=== PATIENT | male | born 1940 | race Caucasian/White ===

== ENCOUNTER → 2017-06-17 | Outpatient (CLI) | payer MEDICARE | END | disposition home or self-care (01) | LOC: XYW 09:41 | PROVIDERS: ATTEND Internal Medicine Cardiovascular Disease | DX: I48.91 Unspecified atrial fibrillation (principal) | CPT/HCPCS: 93306 ==

== ENCOUNTER 2017-08-04 08:26 | Emergency (ER) | payer MEDICARE ==
[~2017-08-04] VITALS: Ht 172.7 cm; Wt 71.7 kg
[2017-08-04] MEDS ORDERED: cefTRIAXone SOD 1,000 MG VL IM ONE (10:00)
[2017-08-04] MEDS ORDERED: SODIUM CHLORIDE 0.9% 1,000 ML IV ONE (10:02)
[2017-08-04] MEDS ORDERED: cefTRIAXone 1GM/50ML D5W 50 ML IV ONE (10:15)
[2017-08-04 11:20] LABS: Basophils # (auto) 0.1 uL; Basophils % (auto) 0.8 % (0.0-2.0); CONDITION Y; Eosinophils # (auto) 0.3 uL; Eosinophils % (auto) 4.4 % (0.0-7.0); Hematocrit 39.2 % (41.0-53.0); Hemoglobin 13.5 g/dL (13.5-17.5); Lymphocytes # (auto) 0.7 uL; Mean Corpuscular Hemoglobin 31.9 pg (28.0-32.0); Mean Corpuscular Hgb Conc. 34.5 g/dL (32.0-36.0); Mean Corpuscular Volume 92.4 fL (80.0-100.0); Mean Platelet Volume 7.5 fL (7.4-10.4); Monocytes # (auto) 0.7 uL; Monocytes % (auto) 9.6 % (0.0-12.0); Neutrophils # (auto) 5.8 uL; Neutrophils % (auto) 76.2 % (37.0-80.0); Platelet Count (auto) 330 10^3/uL (140-450); Red Cell Distribution Width 14.9 % (11.6-16.0); White Blood Cell 7.6 10^3/uL (4.4-10.8)
[2017-08-04 11:41] LABS: INR 0.98 (0.9-1.15); Partial Thromboplastin Time 27.4 sec (22.64-33.71); Prothrombin Time 10.7 sec (9.37-12.3)
[2017-08-04 11:47] LABS: Temperature: 21.1 C (20.0-25.0)
[2017-08-04 12:34] LABS: Albumin 2.9 g/dL (3.4-5.0); Anion Gap 9 (5-15); Aspartate Aminotransferase 8 U/L (15-37); BUN/Creatinine Ratio 17.8; Blood Urea Nitrogen 18 mg/dL (7-18); Calcium 8.7 mg/dL (8.5-10.1); Carbon Dioxide 28 mmol/L (21-32); Chloride 104 mmol/L (98-107); GFR African American 93 mL/min; GFR Non-African American 77 mL/min; Glucose 82 mg/dL (74-106); Potassium 3.9 mmol/L (3.5-5.1); Sodium 141 mmol/L (136-145)
[2017-08-04 12:39] LABS: Alkaline Phosphatase 94 U/L (45-117); Bilirubin, Total 0.6 mg/dL (0.2-1.0); Total Protein 7.2 g/dL (6.4-8.2)
[2017-08-04 13:41] VITALS: BP 110/64
== END 2017-08-04 13:44 | disposition home or self-care (01) ==
LOC: ER 08:26
DX: S82.402A Unspecified fracture of shaft of left fibula, initial encounter for closed fracture (principal); M10.9 Gout, unspecified; I48.91 Unspecified atrial fibrillation; Z85.048 Personal history of other malignant neoplasm of rectum, rectosigmoid junction, and anus; W19.XXXA Unspecified fall, initial encounter; Y93.89 Activity, other specified; Y99.8 Other external cause status; Y92.89 Other specified places as the place of occurrence of the external cause
CPT/HCPCS: 29515; 36415; 71020; 73562; 73610; 80053; 83880; 84484; 85025; 85610; 85730; 93971; 96361; 96365; 99285; J0696

== ENCOUNTER → 2017-11-04 | Outpatient (CLI) | payer MEDICARE ==
[~2017-11-04] MED LIST: DIGO0.1262 PO; OXY20CRT PO; TAMS0.4C36 PO
[2017-11-04 16:32] LABS: BUN/Creatinine Ratio 22.9; Calcium 8.6 mg/dL (8.5-10.1); Potassium 4.4 mmol/L (3.5-5.1)
== END | disposition home or self-care (01) ==
LOC: LAB 15:32
PROVIDERS: ATTEND Internal Medicine Cardiovascular Disease
DX: I48.2 Chronic atrial fibrillation (principal); R60.9 Edema, unspecified
CPT/HCPCS: 36415; 80048

== ENCOUNTER 2019-08-28 14:03 | Inpatient (IN) | payer MEDICARE ==
[~2019-08-28] VITALS: Ht 165.1 cm; Wt 81.9 kg
[~2019-08-28 14:03] MED LIST changes: -DIGO0.1262 PO; +FINA5TAB4 PO; +METO25TA62 PO
[2019-08-28 15:09] LABS: Basophils # (auto) 0.1 uL; Basophils % (auto) 0.9 % (0.0-2.0); Eosinophils # (auto) 0.1 uL; Eosinophils % (auto) 1.9 % (0.0-7.0); Hematocrit 41.8 % (41.0-53.0); Hemoglobin 14.1 g/dL (13.5-17.5); Lymphocytes # (auto) 0.5 uL; Lymphocytes % (auto) 7.1 % (10.0-50.0); Mean Corpuscular Hemoglobin 31.6 pg (28.0-32.0); Mean Corpuscular Hgb Conc. 33.6 g/dL (32.0-36.0); Mean Corpuscular Volume 94.1 fL (80.0-100.0); Neutrophils # (auto) 5.8 uL; Neutrophils % (auto) 77.1 % (37.0-80.0); Platelet Count (auto) 213 10^3/uL (140-450); Red Blood Cells 4.44 10^6/uL (4.5-5.90); Red Cell Distribution Width 16.6 % (11.8-14.3); White Blood Cell 7.6 10^3/uL (4.4-10.8)
[2019-08-28 15:28] LABS: Urine Bacteria NONE SEEN /hpf (None Seen); Urine Blood Negative /uL (Negative); Urine Specific Gravity 1.016 (1.001-1.035); Urine WBC 1 /hpf (0 - 3)
[2019-08-28 15:49] LABS: Alanine Aminotransferase 12 U/L (16-61); Albumin 3.2 g/dL (3.4-5.0); Anion Gap 7 (5-15); Aspartate Aminotransferase 16 U/L (15-37); BUN/Creatinine Ratio 15.5; Blood Urea Nitrogen 13 mg/dL (7-18); Calcium 8.5 mg/dL (8.5-10.1); Carbon Dioxide 29 mmol/L (21-32); Chloride 104 mmol/L (98-107); GFR African American 114 mL/min; GFR Non-African American 94 mL/min; Glucose 115 mg/dL (74-106); Potassium 3.8 mmol/L (3.5-5.1); Sodium 140 mmol/L (136-145)
[2019-08-28 15:54] LABS: Alkaline Phosphatase 126 U/L (45-117); Bilirubin, Total 0.7 mg/dL (0.2-1.0); Total Protein 7.3 g/dL (6.4-8.2)
[2019-08-28] MEDS ORDERED: MORPHINE SULF INJ 2 MG/ML SYRINGE 1ML IV ONE (16:45)
[2019-08-28] MEDS ORDERED: ONDANSETRON HCL 4 MG/2 ML VIAL IV ONE (16:45)
[2019-08-28] MEDS ORDERED: ACETAMINOPHEN 500 MG TAB PO PRN (19:45)
[2019-08-28] MEDS ORDERED: NITROGLYCERIN 0.4 MG SL TAB SL PRN (19:45)
[2019-08-28] MEDS ORDERED: ONDANSETRON HCL 4 MG/2 ML VIAL IV PRN (19:45)
[2019-08-28] MEDS ORDERED: SODIUM CHLORIDE 0.9% 1,000 ML IV ONE (19:45)
--- NOTE | 2019-08-28 20:52 | NUR ---
Telemetry admit from ER JUAN JOSE HOLLOWAY admitted to Telemetry unit after SBAR received. Patient oriented to Yoav Morales, primary RN, unit, room, bed, and unit policies regarding patient care and visiting hours. Patient now on continuous telemetry monitoring, tele box # [id number] and telemetry reading on arrival to unit is afib 95. Patient placed on bedside oxygen, weighed by bedscale and encouraged to call if they need something. All questions and concerns addressed, patient verbalized understanding.
[2019-08-28 21:02] LABS: Uric Acid 5.3 mg/dL (3.5-7.2)
--- NOTE | 2019-08-28 21:05 | NUR ---
PAIN ASSESSMENT The patient reports 7/10 sharp stabbing right flank pain and requested PRN pain medication. Will treat with PRN [place] for pain management.
[2019-08-28] MEDS: HYDROcodone-ACET 5/325MG TAB PO PRN (21:11)
[2019-08-28] MEDS: CLINDAMYCIN 300MG IV 50 ML IV SCH (21:48)
[2019-08-28] MEDS: METOPROLOL TARTRATE 25 MG TAB PO SCH (21:48)
[2019-08-28 22:00] VITALS: BP 134/82
[2019-08-28] MEDS: MORPHINE SULF INJ 2 MG/ML SYRINGE 1ML IV PRN (22:46)
[2019-08-29] MEDS: MORPHINE SULF INJ 2 MG/ML SYRINGE 1ML IV PRN ×6 (03:17→23:45)
[2019-08-29 05:00] VITALS: BP 130/82
[2019-08-29] MEDS: CLINDAMYCIN 300MG IV 50 ML IV SCH ×3 (05:52→21:36)
--- NOTE | 2019-08-29 07:30 | NUR ---
Opening Shift Note Assumed care of patient, awake and alert. No S/S of distress/SOB or pain. Instructed on POC and to call for assist PRN, will continue to monitor for changes Q1hr and PRN. PT USES CANE AT BEDSIDE TO AMBULATE TO THE BATHROOM.
[2019-08-29 07:45] LABS: Basophils # (auto) 0 uL; Basophils % (auto) 0.9 % (0.0-2.0); Eosinophils # (auto) 0.2 uL; Eosinophils % (auto) 3.9 % (0.0-7.0); Hematocrit 37.2 % (41.0-53.0); Hemoglobin 12.7 g/dL (13.5-17.5); Lymphocytes # (auto) 0.4 uL; Lymphocytes % (auto) 8.7 % (10.0-50.0); Mean Corpuscular Hemoglobin 31.9 pg (28.0-32.0); Mean Corpuscular Hgb Conc. 34.2 g/dL (32.0-36.0); Mean Corpuscular Volume 93.4 fL (80.0-100.0); Monocytes # (auto) 0.6 uL; Monocytes % (auto) 11.8 % (0.0-12.0); Neutrophils # (auto) 3.6 uL; Neutrophils % (auto) 74.7 % (37.0-80.0); Platelet Count (auto) 159 10^3/uL (140-450); Red Blood Cells 3.98 10^6/uL (4.5-5.90); Red Cell Distribution Width 16.3 % (11.8-14.3); White Blood Cell 4.8 10^3/uL (4.4-10.8)
[2019-08-29 07:55] LABS: Albumin 2.6 g/dL (3.4-5.0); Calcium 8.3 mg/dL (8.5-10.1); Potassium 4.5 mmol/L (3.5-5.1)
[2019-08-29 07:59] LABS: BUN/Creatinine Ratio 17.1; Bilirubin, Total 0.8 mg/dL (0.2-1.0); Total Protein 6.3 g/dL (6.4-8.2)
[2019-08-29 08:30] VITALS: BP 128/73
[2019-08-29] MEDS: cefTRIAXone 1GM/50ML D5W 50 ML IV SCH (08:41)
[2019-08-29] MEDS: METOPROLOL TARTRATE 25 MG TAB PO SCH ×2 (09:50→21:36)
[2019-08-29] MEDS: FAMOTIDINE 20 MG TAB PO SCH (09:50)
[2019-08-29] MEDS: TAMSULOSIN HYDROCHLORIDE 0.4 MG CAP PO SCH (09:50)
[2019-08-29] MEDS: FINASTERIDE 5 MG TAB PO SCH (09:50)
--- NOTE | 2019-08-29 10:00 | NUR ---
PT'S AT BEDSIDE.
--- NOTE | 2019-08-29 11:00 | NUR ---
IV removal IV SITE STARTING TO LEAK WITH REDNESS ON SITE. DC'd with clean sterile technique, catheter fully intact. Pressure dressing applied to site. Patient tolerated well. NOTE:
--- NOTE | 2019-08-29 11:15 | NUR ---
IV insertion IV access obtained, via clean sterile technique by inserting 22 gauge catheter at LEFT FOREARM after 3 attemptS BY STUDENT RN. IV secured properly. No trauma to site. Patient tolerated well. NOTE:
[2019-08-29 12:30] VITALS: BP 142/94
--- NOTE | 2019-08-29 13:00 | NUR ---
Rounds Patient awake and alert. No S/S of distress/SOB or pain. Will continue to monitor changes q1hr and PRN.
[2019-08-29 17:57] VITALS: BP 129/76
--- NOTE | 2019-08-29 18:47 | NUR ---
Rounds Patient awake and alert. No S/S of distress/SOB. C/O PAIN. MORPHINE IV GIVEN ORDERED. Will continue to monitor changes q1hr and PRN.
--- NOTE | 2019-08-29 19:25 | NUR ---
Opening Shift Note Assumed care of patient, awake and alert. No S/S of distress/SOB or pain. Instructed on POC and to call for assist PRN, will continue to monitor for changes Q1hr and PRN.
[2019-08-29] MEDS: HYDROcodone-ACET 5/325MG TAB PO PRN (21:35)
[2019-08-29 22:08] VITALS: BP 140/76
[2019-08-30] MEDS: MORPHINE SULF INJ 2 MG/ML SYRINGE 1ML IV PRN ×5 (03:45→20:07)
[2019-08-30 05:00] VITALS: BP 147/87
[2019-08-30] MEDS: CLINDAMYCIN 300MG IV 50 ML IV SCH ×3 (07:43→21:52)
[2019-08-30 08:00] VITALS: BP 131/72
[2019-08-30 09:00] VITALS: BP 150/83
[2019-08-30] MEDS: TAMSULOSIN HYDROCHLORIDE 0.4 MG CAP PO SCH (09:41)
[2019-08-30] MEDS: FINASTERIDE 5 MG TAB PO SCH (09:41)
[2019-08-30] MEDS: FAMOTIDINE 20 MG TAB PO SCH (09:41)
[2019-08-30] MEDS: cefTRIAXone 1GM/50ML D5W 50 ML IV SCH (09:41)
[2019-08-30] MEDS: METOPROLOL TARTRATE 25 MG TAB PO SCH ×2 (09:42→21:53)
--- NOTE | 2019-08-30 09:45 | NUR ---
IV insertion IV access obtained, via clean sterile technique by inserting 22 gauge catheter at RAC after 1 attempt(s). IV secured properly. No trauma to site. Patient tolerated procedure well.
--- NOTE | 2019-08-30 12:00 | NUR ---
PATIENT AMBULATES TO THE RESTROOM WITH CANE.
[2019-08-30 13:00] VITALS: BP 134/94
[2019-08-30 17:00] VITALS: BP 140/87
--- NOTE | 2019-08-30 19:04 | NUR ---
DR NEWMAN MADE AWARE OF UROLOGY CONSULT, DR NEWMAN STATES NO INTERVENTION NEEDED PATIENT SHOULD PASS STONES WITHOUT ISSUE.
--- NOTE | 2019-08-30 19:51 | NUR ---
RECEIVED PATIENT FROM DAY SHIFT RN. PATIENT RESTING IN BED. NO S/S OF DISTRESS NOTED. C/O PAIN @ 06/09. WILL COME BACK FOR PAIN MEDICATION LATER. POC INSTRUCTED AND ENCOURAGED PATIENT TO CALL FOR ELECTRICAL POWER ENGINEER IF NEEDED. BED IN LOWEST POSITION WITH SIDE RAILS UP X 2. CALL DOWELL WITHIN REACH. ALARM ON. CONTINUE TO MONITOR FOR CHANGES Q1H AND PRN.
--- NOTE | 2019-08-30 20:08 | NUR ---
MEDICATED PATIENT FOR PAIN @ 06/09. CONTINUE TO MONITOR.
[2019-08-30 22:02] VITALS: BP 131/82
--- NOTE | 2019-08-30 22:44 | NUR ---
REASSESSED BP 149/89, HR 91. CONTINUE TO MONITOR.
[2019-08-31] MEDS: MORPHINE SULF INJ 2 MG/ML SYRINGE 1ML IV PRN ×2 (00:44→05:28)
--- NOTE | 2019-08-31 00:44 | NUR ---
MEDICATED PATIENT FOR PAIN @ 06/09. CONTINUE TO MONITOR.
--- NOTE | 2019-08-31 01:29 | NUR ---
PATIENT WALKED TO BATHROOM AND BACK TO BED WITH CANE. NO S/S OF DISTRESS NOTED. CONTINUE TO MONITOR.
--- NOTE | 2019-08-31 03:05 | NUR ---
MEDICATED PATIENT FOR PAIN @ 07/10. CONTINUE TO MONITOR.
[2019-08-31 04:57] VITALS: BP 129/82
[2019-08-31] MEDS: CLINDAMYCIN 300MG IV 50 ML IV SCH (05:28)
--- NOTE | 2019-08-31 05:28 | NUR ---
MEDICATED PATIENT FOR PAIN @ 06/09. CONTINUE TO MONITOR.
--- NOTE | 2019-08-31 07:15 | NUR ---
Opening Note Received report from rehabilitation teacher RN. Patient is awake, alert and oriented x4. No signs or symptoms of distress noted at this time. Patient is on room air, denies shortness of breath.Patient denies pain at this time. 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 Reviewed plan of care with patient, patient verbalized understanding. Bed in low and locked position, call light within reach. Will continue to monitor.
[2019-08-31 08:00] VITALS: BP 137/94
--- NOTE | 2019-08-31 08:00 | NUR ---
Patient states he wants to leave today. Patient states he needs to go home to see his . Patient does not want to wait for surgical consult. Patient educated, continue to want to leave. Will notify MD. Will continue to monitor Q1 hour and PRN.
[2019-08-31 09:00] VITALS: BP 137/94
[2019-08-31] MEDS: cefTRIAXone 1GM/50ML D5W 50 ML IV SCH (09:00)
[2019-08-31] MEDS: TAMSULOSIN HYDROCHLORIDE 0.4 MG CAP PO SCH (10:00)
[2019-08-31] MEDS: METOPROLOL TARTRATE 25 MG TAB PO SCH (10:00)
[2019-08-31] MEDS: FINASTERIDE 5 MG TAB PO SCH (10:00)
[2019-08-31] MEDS: FAMOTIDINE 20 MG TAB PO SCH (10:00)
--- NOTE | 2019-08-31 10:02 | NUR ---
Colostomy changed Bag removed, area cleaned. New colostomy applied. Stoma pink. Will continue to monitor Q1 hour and PRN.
[2019-08-31 10:20] VITALS: BP 137/94
--- NOTE | 2019-08-31 11:35 | NUR ---
Discharge Discharge instructions given as ordered. Encourage to follow up with PMD as instructed. All questions and concerns addressed. Patient verbalized understanding. Medication reconciliation form completed and copy given to patient. playground monitor removed and sent to [facility]. IV catheter removed, catheter intact, pressure dressing applied. New prescriptions given to patient. Patient taken down to private vehicle, accompanied by staff, with all personal belongings. No signs or symptoms of distress noted at this time.
== END 2019-08-31 11:35 | disposition home or self-care (01) | DRG 603 ==
LOC: ER 14:03 → TELE 14:04 → TELE-CENTR 20:52
PROVIDERS: ADMIT Nurse Practitioner Acute Care; ATTEND Family Medicine
DX: L03.116 Cellulitis of left lower limb (principal); C19 Malignant neoplasm of rectosigmoid junction; N20.0 Calculus of kidney; Z93.3 Colostomy status; K43.5 Parastomal hernia without obstruction or gangrene; M10.9 Gout, unspecified; N40.0 Benign prostatic hyperplasia without lower urinary tract symptoms; I10 Essential (primary) hypertension; I48.91 Unspecified atrial fibrillation; M41.9 Scoliosis, unspecified; M51.36 Other intervertebral disc degeneration, lumbar region; M71.20 Synovial cyst of popliteal space [Baker], unspecified knee; Z82.49 Family history of ischemic heart disease and other diseases of the circulatory system; Z85.048 Personal history of other malignant neoplasm of rectum, rectosigmoid junction, and anus; Z87.442 Personal history of urinary calculi; Z90.49 Acquired absence of other specified parts of digestive tract
CPT/HCPCS: 36415; 74176; 80053; 80061; 81001; 84484; 84550; 85025; 93005; 93971; 96361; 96365; 96375; G0378; J0696; J2405; J3490